=== PATIENT | male | born 1990 | race African-American/Black ===

== ENCOUNTER 2022-03-20 00:28 | Emergency (ER) | payer OTHER, SELFPAY ==
--- NOTE | ~2022-03-20 | XR_ITS ---
EXAMINATION: XR TIBIA AND FIBULA, RIGHT CLINICAL INFORMATION: Fall with pain COMPARISON: None TECHNIQUE: AP and lateral views of the right tibia and fibula were obtained. FINDINGS: Intramedullary nail with 2 proximal and 2 distal interlocking screws transfixing separate mid diaphyseal tibial fractures. These are partially healed with callus formation. Periosteal reaction present. There is also a proximal fibular diaphyseal fracture which is partially healed. No acute fractures seen. Appropriate alignment of the knee and ankle. Soft tissue swelling throughout the lower leg. Degenerative changes are noted at the hindfoot. XR/XR tibia fibula RT 2V IMPRESSION: Internal fixation of tibial diaphyseal fractures with intact hardware in appropriate alignment. No failure. Healing tibial and fibular diaphyseal fractures. No acute fracture.
--- NOTE | ~2022-03-20 | US_ITS ---
EXAMINATION: US VENOUS ULTRASOUND WITH DOPPLER LOWER EXTREMITY, RIGHT CLINICAL INFORMATION: Postoperative. Lower extremity swelling. COMPARISON: None TECHNIQUE: Ultrasound of the deep veins is performed from the hip to the calf with compression sonography and color and pulse Doppler assessment. Spectral analysis with color-flow imaging is performed. FINDINGS: There is normal venous compression and respiratory variation and augmented flow. The visualized common femoral vein, superficial femoral vein, profunda femoral vein, popliteal vein, and the trifurcation region shows no evidence of deep venous thrombosis. There is no significant popliteal fossa cyst. Prominent lymph node in the right inguinal region with otherwise normal morphology. If the patient's symptoms persist, followup ultrasound in 5 days 7 days might be of value to exclude proximal propagation from a non-visualized calf vein. US/US venous duplex LE RT IMPRESSION: No DVT demonstrated in the right lower extremity.
[2022-03-20 00:41] VITALS: BP 126/81; PULSE 81; RESP 16; TEMP 36.6; O2SAT 98; BMI 31.6
--- NOTE | 2022-03-20 01:56 | ED.LOWEXIN ---
HPI - Extremity Injury (Lower) General Chief Complaint: Extremity Injury, Lower Stated Complaint: pain in R leg, fell outside Time Seen by Provider: 03/20/22 00:37 Source: patient and family Mode of arrival: ambulatory History of Present Illness HPI Narrative: 31-year-old male without significant past medical history other than fracture of tibia in November 2021 and sustained a slip and fall accident at home and reports that his right lower leg has been increasing in size and that ?it just does not feel right?. He was seen by the orthopaedic group out of [facility] approximately 1-2 months ago and he does have a follow-up appointment in April. Otherwise, denies any fever, chills, shortness of breath/chest pain/palpitations. Related Data Previous Rx's Medication Instructions Recorded ketorolac 10 mg tablet 10 mg PO Q6H PRN 5 Days #20 tab 03/20/22 Allergies Allergy/AdvReac Type Severity Reaction Status Date / Time No Known Allergies Allergy Verified 03/20/22 00:41 Review of Systems Review of Systems: Pertinent positives and negatives as stated in HPI 10 point review of systems is otherwise negative. [facility] Past Medical History Source: nursing notes reviewed Social History Social History Advance Directives: No Advance Directives Information Provided: Yes Physical Exam Vital Signs: Vital Signs: Last Vital Signs Temp 97.5 F 03/20/22 02:00 Pulse 80 03/20/22 02:00 Resp 16 03/20/22 02:00 BP 108/67 03/20/22 02:00 Pulse Ox 99 03/20/22 02:00 BMI result Body Mass Index 31.6 VITAL SIGNS: Reviewed. GENERAL: Well developed, well nourished, in no acute distress, odor of alcohol HEAD: Normocephalic/atraumatic EYES: PERRLA, EOMI EARS: Ext canals without abnormality OROPHARYNX: no oral lesions noted, posterior pharynx clear LUNGS: Normal breath sounds. No adventitious sounds or accessory muscle use. SpO2<98> CARDIOVASCULAR: Regular rate and rhythm without noted murmurs, no JVD but noted right lower at calf swelling without pitting ABDOMEN: Soft, non-tender, non-distended with bowel sounds. MUSCULOSKELETAL: No tenderness, deformities, or effusions noted on gross inspection. EXTREMITIES: No cyanosis, clubbing; RIGHT LOWER EXTREMITY: Swelling to the right lower extremity without erythema and neurovascularly intact distal SKIN: Inspection of the skin reveals no rashes NEUROLOGIC: Alert and oriented x 4. Strength and sensation to light touch were grossly intact x 4. Course Course Course Narrative: 31-year-old male with history and clinical presentation consistent with the possibility of DVT and lower clinical suspicion for a cellulitis. Review of all investigations negative for acute findings and although there was an elevated D-dimer patient has no respiratory symptoms and venous duplex is negative for DVT. Patient did receive combination analgesics and on re-evaluation endorses some improvement of pain and was noted to be resting comfortably in the bed. He is otherwise discharged home in stable condition with instructions to follow-up with his orthopedic surgeon as scheduled. MDM - Extremity Injury (Lower) Lab Data Result diagrams: 03/20/22 02:23 03/20/22 02:23 Labs: Lab Results 03/20/22 03/20/22 03/20/22 Range/Units 02:23 02:23 02:23 WBC 4.8 (4.8-10.8) X10*3/uL RBC 4.84 (4.60-5.80) X10*6/uL Hgb 13.0 L (14.0-18.0) g/dl Hct 38.7 L (42.0-52.0) % MCV 80.0 (80.0-98.0) fL MCH 26.9 L (27.0-33.0) pg MCHC 33.6 (31.0-36.0) g/dl RDW 16.9 H (11.0-16.0) % Plt Count 190 (160-400) X10*3/uL MPV 9.2 L (9.4-12.4) fL Immature Gran % (Auto) 0.2 (0.0-0.4) % Neut % (Auto) 46.3 (45-73) % Lymph % (Auto) 44.4 H (20-40) % Maverick % (Auto) 4.8 (2-11) % Eos % (Auto) 4.3 H (0-4) % Baso % (Auto) 0.0 (0-2) % Lymph # (Auto) 2.2 (1.2-4.9) X10*3/uL Maverick # (Auto) 0.2 (0.1-1.2) X10*3/uL Eos # (Auto) 0.2 (0.0-0.4) X10*3/uL Baso # (Auto) 0.0 (0.0-0.2) X10*3/uL Abs Immat Gran (auto) 0.01 (0.00-0.03) X10*3/uL Absolute Neuts (auto) 2.2 (2.0-8.3) x10*3/uL Absolute Nucleated RBC 0.000 (0.0-0.012) X10*3/uL Nucleated RBC % (auto) 0.0 (0.0-0.2) /100WBC D-Dimer High Sensitivty 298 NG/ML Sodium 140 (135-145) mmol/L Potassium 4.1 (3.3-5.1) mmol/L Chloride 104 (96-108) mmol/L Carbon Dioxide 25 (22-29) mmol/L Anion Gap 15 (12-20) BUN 11 (9-16) mg/dL Creatinine 0.73 (0.5-1.4) mg/dL Estim Creat Clear Calc 187.9 Estimated GFR > 60 Random Glucose 100 (60-115) mg/dL Calcium 9.4 (8.4-10.2) mg/dL Total Bilirubin 0.3 (0.0-1.0) mg/dL AST 27 (5-37) U/L ALT 26 (0-40) U/L Alkaline Phosphatase 136 H (39-117) U/L Total Protein 6.8 (6.5-8.0) g/dL Albumin 4.0 (3.5-5.0) g/dL Discharge Plan Discharge Clinical Impression: Pain and swelling of right lower extremity Patient Disposition: Home, Self-Care Instructions: Leg Pain (ED) Additional Instructions: 1. Tylenol 1000 mg, orally, every 6 hours as needed for pain control. Do not exceed 4000 mg within 24 hours. 2. Continue to elevate your extremity as much as possible to help reduce the swelling. 3. Please follow-up with your orthopedic surgeon as directed. Return to the ER for worsening symptoms. Prescriptions: New ketorolac 10 mg tablet 10 mg PO Q6H PRN (Reason: pain) 5 Days Qty: 20 0RF Referrals: Juan Luis Greenfield MD [Primary Care Provider] -
[2022-03-20 02:00] VITALS: BP 108/67; PULSE 80; RESP 16; TEMP 36.4; O2SAT 99
[2022-03-20 02:28] LABS: Eosinophils Absolute Auto 0.2 X10*3/uL (0.0-0.4); Eosinophils Percent Auto 4.3 % (0-4); Hematocrit 38.7 % (42.0-52.0); Imm Gran Abs Auto 0.01 X10*3/uL (0.00-0.03); Imm Gran Pct Auto 0.2 % (0.0-0.4); Lymphocytes Absolute Auto 2.2 X10*3/uL (1.2-4.9); Lymphocytes Percent Auto 44.4 % (20-40); MANUAL DIFF FLAG NO; Mean Corpuscular HGB Conc 33.6 g/dl (31.0-36.0); Mean Corpuscular Hemoglobin 26.9 pg (27.0-33.0); Mean Platelet Volume 9.2 fL (9.4-12.4); Monocytes Absolute Auto 0.2 X10*3/uL (0.1-1.2); Monocytes Percent Auto 4.8 % (2-11); Neutrophils Absolute Auto 2.2 x10*3/uL (2.0-8.3); Neutrophils Percent Auto 46.3 % (45-73); Platelet Count 190 X10*3/uL (160-400); Red Blood Count 4.84 X10*6/uL (4.60-5.80); Red Cell Distribution Width 16.9 % (11.0-16.0); White Blood Count 4.8 X10*3/uL (4.8-10.8)
[2022-03-20 02:36] LABS: D Dimer High Sensitivity 298 NG/ML
[2022-03-20] MEDS: Acetaminophen 325 MG TABLET 975 MG PO (02:39)
[2022-03-20] MEDS: Ketorolac Tromethamine 15 MG/ML VIAL IM (02:39)
[2022-03-20 02:49] LABS: Alanine Aminotransferase 26 U/L (0-40); Alkaline Phosphatase 136 U/L (39-117); Anion Gap 15 (12-20); Aspartate Amino Transferase 27 U/L (5-37); Bilirubin Total 0.3 mg/dL (0.0-1.0); Blood Urea Nitrogen 11 mg/dL (9-16); Calcium 9.4 mg/dL (8.4-10.2); Carbon Dioxide 25 mmol/L (22-29); Chloride 104 mmol/L (96-108); Creatinine Clr Calc Pharmacy 187.9; Estimated Glomerular Filt Rate > 60; Glucose Random 100 mg/dL (60-115); Potassium 4.1 mmol/L (3.3-5.1); Sodium 140 mmol/L (135-145); Total Protein 6.8 g/dL (6.5-8.0)
== END 2022-03-20 04:38 | disposition home or self-care (01) ==
PROVIDERS: Emergency Provider Student in an Organized Health Care Education/Training Program; PCP Internal Medicine
DX: R60.0 Localized edema (principal); M79.604 Pain in right leg; Z79.899 Other long term (current) drug therapy
CPT/HCPCS: 36415; 73590; 80053; 85025; 85379; 93971; 96372; 99284; J1885